=== PATIENT | male | born 1975 | race African-American/Black ===

== ENCOUNTER 2017-08-01 13:11 | Emergency (ER) | payer OTHER ==
[~2017-08-01] VITALS: Ht 167.6 cm; Wt 56.8 kg
[~2017-08-01 13:11] MED LIST: BENZ1TAB10 PO; CARB200T6 PO; DIVA250T25 PO; DSSL PO; FLUO-191 PO; FLUT16H NASAL; GLYC1TAB11 PO; LEVO25TA9 PO; LORA-703 PO; LORA10TA7 PO; METO25 PO; MONT10TA21 PO; THIO50 PO; TRAZ150 PO; ZOLP10TA7 PO
[2017-08-01 13:14] VITALS: BP 134/79
== END 2017-08-01 15:02 | disposition left against medical advice (07) ==
LOC: EMS 13:12
DX: R06.02 Shortness of breath (principal); K21.9 Gastro-esophageal reflux disease without esophagitis; J45.909 Unspecified asthma, uncomplicated; Z53.21 Procedure and treatment not carried out due to patient leaving prior to being seen by health care provider

== ENCOUNTER 2017-09-26 06:35 | Day surgery (SDC) | payer OTHER ==
[~2017-09-26] VITALS: Ht 165.1 cm; Wt 74.1 kg
[~2017-09-26 06:35] MED LIST changes: +DIPH50 PO; -DIVA250T25 PO; +DIVA500T35 PO; +DSS100 PO; -DSSL PO; -FLUO-191 PO; -FLUT16H NASAL; -LORA-703 PO; +LORA0.5T2 PO; -LORA10TA7 PO; -MONT10TA21 PO; +OLAN10TA3 PO; +RINGERS SOLUTION,LACTATED 1,000 ML IV ONE; -THIO50 PO; -TRAZ150 PO; -ZOLP10TA7 PO
[2017-09-26] MEDS ORDERED: MIDAZOLAM HCL 2 MG/2 ML VIAL IVP ONE (06:36)
[2017-09-26] MEDS ORDERED: PROPOFOL 1% 20 ML VIAL IVP ONE (06:36)
[2017-09-26] MEDS ORDERED: FentaNYL CITRATE-PF 100 MCG/2 ML VIAL IVP ONE (06:36)
[2017-09-26] MEDS ORDERED: OXYMETAZOLINE HCL 0.05% 15 ML NASAL SPRAY NASAL ONE (07:06)
[2017-09-26] MEDS ORDERED: SODIUM CHLORIDE 0.9% 100 ML ONE (07:11)
[2017-09-26] MEDS ORDERED: AMPICILLIN SODIUM 1 GM/VIAL ONE (07:11)
[2017-09-26 07:29] LABS: BASOPHILS % (AUTO) 0.3 % (0.0-2.0); EOSINOPHILS % (AUTO) 2.4 % (1.0-6.0); HEMATOCRIT 35.8 % (41-53); HEMOGLOBIN 12.2 g/dL (13.5-17.5); LYMPHOCYTES # (AUTO) 1.2 K/uL (1.0-4.8); LYMPHOCYTES % (AUTO) 15.1 % (22.0-44.0); MEAN CORPUSCULAR HEMOGLOBIN 30.9 pg (26.0-34.0); MEAN CORPUSCULAR HGB CONC 34.1 G/dL (31.0-37.0); MEAN CORPUSCULAR VOLUME 91 fL (80-100); MONOCYTES # (AUTO) 1.1 K/uL (0.1-1.0); MONOCYTES % (AUTO) 13.6 % (2.0-9.0); NEUTROPHILS # (AUTO) 5.6 K/uL (1.8-7.7); NEUTROPHILS % (AUTO) 68.6 % (40.0-70.0); PLATELET COUNT (AUTO) 227 K/uL (150-450); RED BLOOD CELL COUNT(AUTO) 3.95 MIL/uL (4.50-5.90); RED CELL DISTRIBUTION WIDTH 14.7 % (11.5-14.5)
[2017-09-26 07:37] LABS: ANION GAP 4 mmol/L (8-16); CALCIUM, TOTAL 8.7 mg/dL (8.8-10.5); CARBON DIOXIDE 29 mmol/L (22-29); CHLORIDE 100 mmol/L (98-107); CREATININE 0.69 mg/dL (0.60-1.30); GLOMERULAR FILTR. RATE CALC > 60 mL/min (>60); GLUCOSE,RANDOM 92 mg/dL (70-110); SODIUM SERUM 133 mmol/L (136-145); UREA NITROGEN, BLOOD 8 mg/dL (7-18)
[2017-09-26 07:42] LABS: ALANINE AMINOTRANSFERASE 21 U/L (12-78); ALBUMIN 3.1 g/dL (3.4-5.0); ALKALINE PHOSPHATASE 43 U/L (46-116); ASPARTATE AMINOTRANSFERASE 13 U/L (15-37); BILIRUBIN,TOTAL 0.2 mg/dL (0.1-1.0); TOTAL PROTEIN, SERUM 7.6 g/dL (6.4-8.2)
[2017-09-26] MEDS ORDERED: FentaNYL CITRATE-PF 100 MCG/2 ML VIAL IVP PRN ×2 (10:15)
[2017-09-26] MEDS ORDERED: KETOROLAC TROMETHAMINE 60 MG/2 ML VIAL IM PRN (10:15)
[2017-09-26] MEDS ORDERED: ONDANSETRON HCL 4 MG/2 ML VIAL IVP PRN (10:15)
[2017-09-26] MEDS ORDERED: FentaNYL CITRATE-PF 100 MCG/2 ML VIAL ONE ×2 (10:46→10:58)
[2017-09-26] MEDS ORDERED: MIDAZOLAM HCL 2 MG/2 ML VIAL ONE (10:46)
[2017-09-26] MEDS ORDERED: MEPERIDINE HCL/PF 25 MG/0.5 ML AMP ONE (10:59)
[2017-09-26] MEDS: FentaNYL CITRATE-PF 100 MCG/2 ML VIAL IVP PRN ×2 (11:06→11:12)
[2017-09-26] MEDS: MIDAZOLAM HCL 2 MG/2 ML VIAL IVP PRN ×2 (11:07→11:12)
== END 2017-09-26 12:00 | disposition home or self-care (01) ==
LOC: SURGERY 06:35
PROVIDERS: ATTEND Dentist General Practice
DX: K05.30 Chronic periodontitis, unspecified (principal); I10 Essential (primary) hypertension; E03.9 Hypothyroidism, unspecified; G40.909 Epilepsy, unspecified, not intractable, without status epilepticus; Z79.01 Long term (current) use of anticoagulants
CPT/HCPCS: 36415; 41899; 71045; 80053; 85025; 85610; 85730; 93005; J0290; J2250; J2704; J3010; J7050; J7120

== ENCOUNTER 2019-02-08 19:55 | Emergency (ER) | payer MEDICARE, OTHER ==
[~2019-02-08] VITALS: Ht 172.7 cm; Wt 71.9 kg
[~2019-02-08 19:55] MED LIST changes: +DIVA-78 PO; -DIVA500T35 PO; +LORA-999 PO; -LORA0.5T2 PO; -RINGERS SOLUTION,LACTATED 1,000 ML IV ONE
[2019-02-08] MEDS ORDERED: LORA0.5T83 PO (20:17)
[2019-02-08] MEDS ORDERED: ACET-2247 PO (20:17)
[2019-02-08 21:19] LABS: AMPHET/METH SCREEN,URINE NEGATIVE (NEGATIVE); BARBITURATE SCREEN, URINE NEGATIVE (NEGATIVE); BENZODIAZEPINES SCREEN,URINE NEGATIVE (NEGATIVE); CANNABINOID SCREEN,URINE NEGATIVE (NEGATIVE); COCAINE SCREEN,URINE NEGATIVE (NEGATIVE); METHADONE SCREEN, URINE NEGATIVE (NEGATIVE); OPIATE SCREEN,URINE NEGATIVE (NEGATIVE)
[2019-02-08 21:24] LABS: PHENCYCLIDINE SCREEN,URINE NEGATIVE (NEGATIVE)
[2019-02-08 21:29] LABS: BASOPHILS % (AUTO) 0.8 % (0.0-2.0); EOSINOPHILS % (AUTO) 3.1 % (1.0-6.0); HEMATOCRIT 37.7 % (41-53); HEMOGLOBIN 12.7 g/dL (13.5-17.5); LYMPHOCYTES # (AUTO) 1.5 K/uL (1.0-4.8); LYMPHOCYTES % (AUTO) 36.9 % (22.0-44.0); MEAN CORPUSCULAR HEMOGLOBIN 31.2 pg (26.0-34.0); MEAN CORPUSCULAR HGB CONC 33.6 G/dL (31.0-37.0); MEAN CORPUSCULAR VOLUME 93 fL (80-100); MONOCYTES # (AUTO) 0.8 K/uL (0.1-1.0); MONOCYTES % (AUTO) 19.9 % (2.0-9.0); NEUTROPHILS # (AUTO) 1.6 K/uL (1.8-7.7); NEUTROPHILS % (AUTO) 39.3 % (40.0-70.0); PLATELET COUNT (AUTO) 246 K/uL (150-450); RED BLOOD CELL COUNT(AUTO) 4.07 MIL/uL (4.50-5.90); RED CELL DISTRIBUTION WIDTH 15.3 % (11.5-14.5)
[2019-02-08 21:45] LABS: ANION GAP 3 mmol/L (8-16); CALCIUM, TOTAL 9.4 mg/dL (8.8-10.5); CARBON DIOXIDE 30 mmol/L (22-29); CHLORIDE 99 mmol/L (98-107); CREATININE 0.71 mg/dL (0.60-1.30); GLOMERULAR FILTR. RATE CALC > 60 mL/min (>60); GLUCOSE,RANDOM 72 mg/dL (70-110); POTASSIUM 4.2 mmol/L (3.5-5.1); SODIUM SERUM 132 mmol/L (136-145); UREA NITROGEN, BLOOD 9 mg/dL (7-18)
[2019-02-08 21:51] LABS: ALANINE AMINOTRANSFERASE 21 U/L (12-78); ALBUMIN 3.5 g/dL (3.4-5.0); ALKALINE PHOSPHATASE 40 U/L (46-116); ASPARTATE AMINOTRANSFERASE 23 U/L (15-37); BILIRUBIN,TOTAL 0.2 mg/dL (0.1-1.0); CARBAMAZEPINE (TEGRETOL) 4.5 mcg/mL (4.0-12.0); VALPROIC ACID 27 mcg/mL (50-100)
[2019-02-09 02:00] VITALS: BP 130/82
[2019-02-10] MEDS ORDERED: GLYC1TAB11 PO (11:48)
[2019-02-10] MEDS ORDERED: LEVE500T53 PO (11:48)
[2019-02-10] MEDS ORDERED: AMLO5TAB9 PO (11:48)
[2019-02-10] MEDS ORDERED: DIVA-78 PO (11:48)
[2019-02-10] MEDS ORDERED: DOCU-275 PO (13:23)
== END 2019-02-09 02:27 | disposition home or self-care (01) ==
LOC: EMS 19:56
DX: R45.1 Restlessness and agitation (principal); J45.909 Unspecified asthma, uncomplicated; K21.9 Gastro-esophageal reflux disease without esophagitis; G80.9 Cerebral palsy, unspecified; F32.9 Major depressive disorder, single episode, unspecified; Z79.899 Other long term (current) drug therapy
CPT/HCPCS: 36415; 80053; 80156; 80164; 80307; 85025; 99284; G0480

== ENCOUNTER 2019-02-10 11:07 | Inpatient (IN) | payer MEDICARE, OTHER ==
[~2019-02-10] VITALS: Ht 167.6 cm; Wt 68.6 kg
[~2019-02-10 11:07] MED LIST changes: +ACET-2247 PO; +LORA0.5T83 PO
[2019-02-10] MEDS ORDERED: LORazepam 2 MG/ML VIAL IVP ONE (11:45)
[2019-02-10] MEDS ORDERED: GLYC1TAB11 PO (11:48)
[2019-02-10] MEDS ORDERED: AMLO5TAB9 PO (11:48)
[2019-02-10] MEDS ORDERED: LEVE500T53 PO (11:48)
[2019-02-10] MEDS ORDERED: DIVA-78 PO (11:48)
[2019-02-10 12:05] LABS: BASOPHILS % (AUTO) 1.1 % (0.0-2.0); EOSINOPHILS % (AUTO) 0.4 % (1.0-6.0); HEMATOCRIT 39.4 % (41-53); HEMOGLOBIN 13.2 g/dL (13.5-17.5); LYMPHOCYTES # (AUTO) 1.2 K/uL (1.0-4.8); LYMPHOCYTES % (AUTO) 13.4 % (22.0-44.0); MEAN CORPUSCULAR HEMOGLOBIN 31.3 pg (26.0-34.0); MEAN CORPUSCULAR HGB CONC 33.6 G/dL (31.0-37.0); MEAN CORPUSCULAR VOLUME 93 fL (80-100); MONOCYTES # (AUTO) 0.9 K/uL (0.1-1.0); MONOCYTES % (AUTO) 9.5 % (2.0-9.0); NEUTROPHILS % (AUTO) 75.6 % (40.0-70.0); PLATELET COUNT (AUTO) 323 K/uL (150-450); RED BLOOD CELL COUNT(AUTO) 4.22 MIL/uL (4.50-5.90); RED CELL DISTRIBUTION WIDTH 15.4 % (11.5-14.5)
[2019-02-10 12:35] LABS: ANION GAP 15 mmol/L (8-16); CALCIUM, TOTAL 9.3 mg/dL (8.8-10.5); CARBON DIOXIDE 21 mmol/L (22-29); CHLORIDE 101 mmol/L (98-107); CREATININE 1.09 mg/dL (0.60-1.30); GLOMERULAR FILTR. RATE CALC > 60 mL/min (>60); GLUCOSE,RANDOM 92 mg/dL (70-110); POTASSIUM 4.3 mmol/L (3.5-5.1); SODIUM SERUM 137 mmol/L (136-145); UREA NITROGEN, BLOOD 9 mg/dL (7-18)
[2019-02-10 12:48] LABS: ALANINE AMINOTRANSFERASE 24 U/L (12-78); ALBUMIN 3.7 g/dL (3.4-5.0); ALKALINE PHOSPHATASE 43 U/L (46-116); ASPARTATE AMINOTRANSFERASE 19 U/L (15-37); BILIRUBIN,TOTAL 0.2 mg/dL (0.1-1.0); FREE T4 (FREE THYROXINE) 1.02 ng/dL (0.76-1.46); THYROID STIMULATING HORMONE 1.24 uIU/mL (0.36-3.74); TOTAL PROTEIN, SERUM 8.4 g/dL (6.4-8.2); VALPROIC ACID 16 mcg/mL (50-100)
[2019-02-10] MEDS ORDERED: SODIUM CHLORIDE 0.9% 2,200 ML IV ONE (13:17)
[2019-02-10] MEDS ORDERED: DOCU-275 PO (13:23)
[2019-02-10] MEDS ORDERED: 0.9% SODIUM CHLORIDE 10 ML SYRINGE IVP PRN (13:30)
[2019-02-10 13:50] LABS: PROTHROMBIN TIME 10.4 SEC (9.4-11.6)
[2019-02-10 14:20] LABS: LACTIC ACID 2.3 mmol/L (0.4-2.0)
[2019-02-10] MEDS ORDERED: VALPROATE SODIUM 1,000 MG in DEXTROSE 5%-WATER 100 ML IV ONE (14:45)
[2019-02-10] MEDS ORDERED: CefTRIAXone SODIUM 2 GM in DEXTROSE 5%-WATER 50 ML IV ONE (14:45)
[2019-02-10] MEDS ORDERED: PIPERACILLIN/TAZO 3.375 GM/D5W 50 ML IV ONE (14:45)
[2019-02-10 18:16] LABS: AMPHET/METH SCREEN,URINE NEGATIVE (NEGATIVE); BARBITURATE SCREEN, URINE NEGATIVE (NEGATIVE); BENZODIAZEPINES SCREEN,URINE NEGATIVE (NEGATIVE); CANNABINOID SCREEN,URINE NEGATIVE (NEGATIVE); COCAINE SCREEN,URINE NEGATIVE (NEGATIVE); METHADONE SCREEN, URINE NEGATIVE (NEGATIVE); OPIATE SCREEN,URINE NEGATIVE (NEGATIVE)
[2019-02-10 18:17] LABS: APPEARANCE,URINE CLEAR (CLEAR); BILIRUBIN,URINE NEGATIVE (NEGATIVE); GLUCOSE, URINE (UA) NEGATIVE (NEGATIVE); KETONES,URINE NEGATIVE (NEGATIVE); LEUKOCYTE ESTERASE ,URINE NEGATIVE (NEGATIVE); NITRATE,URINE NEGATIVE (NEGATIVE); OCCULT BLOOD,URINE NEGATIVE (NEGATIVE); PH,URINE 6.5 (5.0-8.0); PROTEIN,URINE NEGATIVE (NEGATIVE); UROBILINOGEN,URINE 0.2 mg/dL (<=1.0)
[2019-02-10 18:19] LABS: PHENCYCLIDINE SCREEN,URINE NEGATIVE (NEGATIVE)
[2019-02-10 20:43] VITALS: BP 141/89
[2019-02-10] MEDS ORDERED: DOCUSATE SODIUM 100 MG CAPSULE PO SCH (21:00)
[2019-02-10] MEDS ORDERED: ALBUTEROL SULFATE 2.5 MG/0.5 ML NEB SOLUTION NEB PRN (21:00)
[2019-02-10] MEDS ORDERED: HYDROCODONE/ACETAMINOPHEN 5-325 MG TABLET PO PRN (21:00)
[2019-02-10] MEDS ORDERED: BISACODYL 10 MG RECTAL RECTAL SUPPOSITORY PR PRN (21:00)
[2019-02-10] MEDS ORDERED: IPRATROPIUM BROMIDE 0.5 MG/2.5 ML NEB SOLUTION NEB PRN (21:00)
[2019-02-10] MEDS ORDERED: ZOLPIDEM TARTRATE 5 MG TABLET PO PRN (21:00)
[2019-02-10] MEDS ORDERED: ONDANSETRON HCL 4 MG/2 ML VIAL IVP PRN (21:00)
[2019-02-10] MEDS ORDERED: ACETAMINOPHEN 325 MG TABLET PO PRN (21:00)
[2019-02-10] MEDS ORDERED: DiphenhydrAMINE HCL 50 MG CAPSULE PO SCH (21:00)
[2019-02-10] MEDS ORDERED: MAGNESIUM HYDROXIDE SUSPENSION 30 ML UDCUP PO PRN (21:00)
[2019-02-10] MEDS ORDERED: MORPHINE SULFATE 2 MG/ML SYRINGE IVP PRN (21:00)
[2019-02-10] MEDS ORDERED: LORazepam 0.5 MG TABLET PO PRN (21:00)
[2019-02-10] MEDS: OLANZapine 10 MG TABLET PO SCH (22:08)
[2019-02-10] MEDS: BENZTROPINE MESYLATE 1 MG TABLET PO SCH (22:08)
[2019-02-10] MEDS: CarBAMazepine 200 MG TABLET PO SCH (22:08)
[2019-02-10] MEDS: GLYCOPYRROLATE 1 MG TABLET PO SCH (22:08)
[2019-02-10] MEDS: DIVALPROEX SODIUM 500 MG DR TABLET PO SCH (22:08)
[2019-02-10] MEDS: LevETIRAcetam 500 MG TABLET PO SCH (22:09)
[2019-02-10 23:54] VITALS: BP 102/54
[2019-02-11] MEDS: HEPARIN SODIUM,PORCINE 5,000 UNITS/ML VIAL SQ SCH ×3 (00:58→16:00)
[2019-02-11] MEDS ORDERED: PNEUMOCOCCAL VACCINE POLYVALENT 0.5 ML VIAL [PPSV23] IM ONE (02:15)
[2019-02-11 05:07] VITALS: BP 118/93
[2019-02-11] MEDS ORDERED: LEVOTHYROXINE SODIUM 25 MCG TABLET PO SCH (06:30)
[2019-02-11 06:59] LABS: BASOPHILS % (AUTO) 0.9 % (0.0-2.0); HEMATOCRIT 37.9 % (41-53); HEMOGLOBIN 12.8 g/dL (13.5-17.5); LYMPHOCYTES # (AUTO) 1.7 K/uL (1.0-4.8); MEAN CORPUSCULAR HEMOGLOBIN 31.4 pg (26.0-34.0); MEAN CORPUSCULAR HGB CONC 33.8 G/dL (31.0-37.0); MEAN CORPUSCULAR VOLUME 93 fL (80-100); MONOCYTES # (AUTO) 0.6 K/uL (0.1-1.0); NEUTROPHILS # (AUTO) 2.8 K/uL (1.8-7.7); NEUTROPHILS % (AUTO) 54.1 % (40.0-70.0); PLATELET COUNT (AUTO) 311 K/uL (150-450); RED BLOOD CELL COUNT(AUTO) 4.08 MIL/uL (4.50-5.90); RED CELL DISTRIBUTION WIDTH 15.4 % (11.5-14.5)
[2019-02-11 07:23] LABS: ALANINE AMINOTRANSFERASE 22 U/L (12-78); ALKALINE PHOSPHATASE 40 U/L (46-116); ANION GAP 11 mmol/L (8-16); ASPARTATE AMINOTRANSFERASE 17 U/L (15-37); BILIRUBIN,TOTAL 0.2 mg/dL (0.1-1.0); CALCIUM, TOTAL 8.8 mg/dL (8.8-10.5); CARBON DIOXIDE 26 mmol/L (22-29); CHLORIDE 106 mmol/L (98-107); CREATININE 0.71 mg/dL (0.60-1.30); GLOMERULAR FILTR. RATE CALC > 60 mL/min (>60); GLUCOSE,RANDOM 75 mg/dL (70-110); POTASSIUM 3.5 mmol/L (3.5-5.1); SODIUM SERUM 143 mmol/L (136-145); TOTAL PROTEIN, SERUM 7.7 g/dL (6.4-8.2); UREA NITROGEN, BLOOD 4 mg/dL (7-18)
[2019-02-11 08:29] VITALS: BP 140/81
[2019-02-11] MEDS: CarBAMazepine 200 MG TABLET PO SCH (08:33)
[2019-02-11] MEDS: OLANZapine 10 MG TABLET PO SCH (08:33)
[2019-02-11] MEDS: BENZTROPINE MESYLATE 1 MG TABLET PO SCH (08:33)
[2019-02-11] MEDS: LevETIRAcetam 500 MG TABLET PO SCH ×2 (08:33→17:17)
[2019-02-11] MEDS: GLYCOPYRROLATE 1 MG TABLET PO SCH ×2 (08:33→17:16)
[2019-02-11] MEDS: DIVALPROEX SODIUM 500 MG DR TABLET PO SCH (08:34)
[2019-02-11] MEDS ORDERED: METOPROLOL TARTRATE 25 MG TABLET PO SCH (09:00)
[2019-02-11] MEDS ORDERED: AmLODIPine BESYLATE 5 MG TABLET PO SCH (09:00)
[2019-02-11] MEDS ORDERED: DOCUSATE SODIUM 100 MG CAPSULE PO SCH (09:00)
[2019-02-11 12:34] VITALS: BP 134/76
[2019-02-11] MEDS ORDERED: LORazepam 2 MG/ML VIAL IVP PRN (14:00)
[2019-02-11 16:16] VITALS: BP 144/90
[2019-02-11 20:00] VITALS: BP 113/81
== END 2019-02-11 20:15 | DRG 101 ==
LOC: EMS 11:08 → 5S 18:31
PROVIDERS: ADMIT Hospitalist; ATTEND Hospitalist
DX: G40.909 Epilepsy, unspecified, not intractable, without status epilepticus (principal); I10 Essential (primary) hypertension; E03.9 Hypothyroidism, unspecified; F32.9 Major depressive disorder, single episode, unspecified; J45.909 Unspecified asthma, uncomplicated; Z87.01 Personal history of pneumonia (recurrent); F79 Unspecified intellectual disabilities; K21.9 Gastro-esophageal reflux disease without esophagitis
CPT/HCPCS: 70450; 83605; 84145; 84439; 84443; 87040; 87081; 87205; 93005; 97165; G0480; J0696; J1644; J2060; J2543; J3490; J7030; J7060

== ENCOUNTER 2022-06-14 11:21 | Inpatient (IN) | payer MEDICARE, OTHER ==
[~2022-06-14] VITALS: Ht 165.1 cm; Wt 65.5 kg
[~2022-06-14 11:21] MED LIST changes: +AMLO-257 PO; -BENZ1TAB10 PO; +BENZ1TAB96 PO; +DIVA-112 PO; -DIVA-78 PO; +DOCU-385 PO; -DSS100 PO; -GLYC1TAB11 PO; +GLYC1TAB27 PO; +LEVE500T20 PO; -OLAN10TA3 PO; +OLAN10TA74 PO
[2022-06-14] MEDS ORDERED: DOCU-350 PO (11:46)
[2022-06-14] MEDS ORDERED: CHOL25TA4 PO (11:46)
[2022-06-14] MEDS ORDERED: CARB100T53 PO (11:46)
[2022-06-14] MEDS ORDERED: DIVA-112 PO ×2 (11:46)
[2022-06-14] MEDS ORDERED: POLY17PO47 PO (11:46)
[2022-06-14] MEDS ORDERED: SIMV-260 PO (11:46)
[2022-06-14] MEDS ORDERED: CARB-60 PO (11:58)
[2022-06-14] MEDS ORDERED: METO-408 PO (11:58)
[2022-06-14] MEDS ORDERED: CARBXR100 PO (11:59)
[2022-06-14 13:26] LABS: COVID AG,FIA SOURCE NASAL SWAB
[2022-06-14 13:29] LABS: BASOPHILS % (AUTO) 0.7 % (0.0-2.0); HEMATOCRIT 39.5 % (41-53); HEMOGLOBIN 13.2 g/dL (13.5-17.5); LYMPHOCYTES # (AUTO) 0.3 K/uL (1.0-4.8); LYMPHOCYTES % (AUTO) 7.1 % (22.0-44.0); MEAN CORPUSCULAR HEMOGLOBIN 30.3 pg (26.0-34.0); MEAN CORPUSCULAR HGB CONC 33.5 G/dL (31.0-37.0); MEAN CORPUSCULAR VOLUME 90 fL (80-100); MONOCYTES # (AUTO) 0.8 K/uL (0.1-1.0); MONOCYTES % (AUTO) 17.5 % (2.0-9.0); NEUTROPHILS # (AUTO) 3.3 K/uL (1.8-7.7); NEUTROPHILS % (AUTO) 72.7 % (40.0-70.0); PLATELET COUNT (AUTO) 159 K/uL (150-450); RED BLOOD CELL COUNT(AUTO) 4.38 MIL/uL (4.50-5.90); RED CELL DISTRIBUTION WIDTH 14.7 % (11.5-14.5)
[2022-06-14 13:46] LABS: ALANINE AMINOTRANSFERASE 24 U/L (12-78); ALBUMIN 3.8 g/dL (3.4-5.0); ALKALINE PHOSPHATASE 45 U/L (46-116); ANION GAP 6 mmol/L (8-16); ASPARTATE AMINOTRANSFERASE 20 U/L (15-37); BILIRUBIN,TOTAL 0.1 mg/dL (0.1-1.0); CALCIUM, TOTAL 9.1 mg/dL (8.8-10.5); CARBON DIOXIDE 29 mmol/L (22-29); CHLORIDE 94 mmol/L (98-107); CREATININE 0.91 mg/dL (0.60-1.30); GLOMERULAR FILTR. RATE CALC > 60 mL/min (>60); GLUCOSE,RANDOM 84 mg/dL (70-110); POTASSIUM 4.3 mmol/L (3.5-5.1); SODIUM SERUM 129 mmol/L (136-145); UREA NITROGEN, BLOOD 10 mg/dL (7-18); VALPROIC ACID 67 mcg/mL (50-100)
[2022-06-14] MEDS ORDERED: MORPHINE SULFATE 2 MG/ML SYRINGE IVP PRN (14:30)
[2022-06-14] MEDS ORDERED: LORazepam 2 MG/ML VIAL IVP PRN (14:30)
[2022-06-14] MEDS ORDERED: ONDANSETRON HCL 4 MG/2 ML VIAL IVP PRN (14:30)
[2022-06-14] MEDS ORDERED: MAGNESIUM HYDROXIDE SUSPENSION 30 ML UDCUP PO PRN (14:30)
[2022-06-14] MEDS ORDERED: HYDROCODONE/ACETAMINOPHEN 5-325 MG TABLET PO PRN (14:30)
[2022-06-14] MEDS ORDERED: VALPROATE SODIUM 1,000 MG in DEXTROSE 5%-WATER 100 ML IV ONE (14:30)
[2022-06-14] MEDS ORDERED: ACETAMINOPHEN 325 MG TABLET PO PRN (14:30)
[2022-06-14] MEDS ORDERED: BISACODYL 10 MG RECTAL RECTAL SUPPOSITORY PR PRN (14:30)
[2022-06-14 14:40] LABS: CARBAMAZEPINE (TEGRETOL) 4.6 mcg/mL (4.0-12.0)
[2022-06-14 15:49] VITALS: BP 142/82
[2022-06-14 15:52] LABS: AMPHET/METH SCREEN,URINE NEGATIVE (NEGATIVE); BARBITURATE SCREEN, URINE NEGATIVE (NEGATIVE); BENZODIAZEPINES SCREEN,URINE NEGATIVE (NEGATIVE); CANNABINOID SCREEN,URINE NEGATIVE (NEGATIVE); COCAINE SCREEN,URINE NEGATIVE (NEGATIVE); METHADONE SCREEN, URINE NEGATIVE (NEGATIVE); OPIATE SCREEN,URINE NEGATIVE (NEGATIVE); PHENCYCLIDINE SCREEN,URINE NEGATIVE (NEGATIVE)
[2022-06-14] MEDS: HEPARIN SODIUM,PORCINE 5,000 UNITS/ML VIAL SQ SCH (18:08)
[2022-06-14 20:20] VITALS: BP 123/70
[2022-06-14] MEDS: BENZTROPINE MESYLATE 1 MG TABLET PO SCH (20:39)
[2022-06-14] MEDS: DIVALPROEX SODIUM 500 MG DR TABLET PO SCH (20:39)
[2022-06-14] MEDS: DOCUSATE SODIUM 100 MG CAPSULE PO SCH (20:39)
[2022-06-14] MEDS: CarBAMazepine 100 MG ER TABLET PO SCH (20:39)
[2022-06-14] MEDS: ZOLPIDEM TARTRATE 5 MG TABLET PO PRN (20:40)
[2022-06-15] MEDS: HEPARIN SODIUM,PORCINE 5,000 UNITS/ML VIAL SQ SCH ×4 (00:01→23:04)
[2022-06-15 00:53] VITALS: BP_SYST 106; BP_SYST 108; BP_DIAS 56; BP_DIAS 71
[2022-06-15 05:47] VITALS: BP 111/74
[2022-06-15] MEDS: LEVOTHYROXINE SODIUM 25 MCG TABLET PO SCH (05:49)
[2022-06-15 08:38] VITALS: BP 127/86
[2022-06-15] MEDS: SIMVASTATIN 20 MG TABLET PO SCH (09:00)
[2022-06-15] MEDS: BENZTROPINE MESYLATE 1 MG TABLET PO SCH ×2 (09:01→21:33)
[2022-06-15] MEDS: DOCUSATE SODIUM 100 MG CAPSULE PO SCH ×2 (09:01→21:33)
[2022-06-15] MEDS: METOPROLOL SUCCINATE 25 MG ER TABLET PO SCH (09:01)
[2022-06-15] MEDS: AmLODIPine BESYLATE 5 MG TABLET PO SCH (09:01)
[2022-06-15] MEDS: PANTOPRAZOLE SODIUM 40 MG DR TABLET PO SCH (09:01)
[2022-06-15] MEDS: DEXAMETHASONE 4 MG TABLET PO SCH (09:01)
[2022-06-15] MEDS: CarBAMazepine 200 MG ER TABLET PO SCH (09:02)
[2022-06-15] MEDS: DIVALPROEX SODIUM 500 MG DR TABLET PO SCH ×2 (09:03→21:30)
[2022-06-15 10:00] VITALS: BP 136/81
[2022-06-15 11:20] LABS: HEMOGLOBIN 13.2 g/dL (13.5-17.5); MEAN CORPUSCULAR HGB CONC 33.1 G/dL (31.0-37.0); MEAN CORPUSCULAR VOLUME 91 fL (80-100); PLATELET COUNT (AUTO) 139 K/uL (150-450); RED BLOOD CELL COUNT(AUTO) 4.41 MIL/uL (4.50-5.90); RED CELL DISTRIBUTION WIDTH 14.6 % (11.5-14.5)
[2022-06-15 11:43] LABS: ANION GAP 6 mmol/L (8-16); CALCIUM, TOTAL 9.3 mg/dL (8.8-10.5); CARBON DIOXIDE 29 mmol/L (22-29); CHLORIDE 96 mmol/L (98-107); CREATININE 0.89 mg/dL (0.60-1.30); GLOMERULAR FILTR. RATE CALC > 60 mL/min (>60); GLUCOSE,RANDOM 119 mg/dL (70-110); POTASSIUM 3.6 mmol/L (3.5-5.1); SODIUM SERUM 131 mmol/L (136-145); UREA NITROGEN, BLOOD 11 mg/dL (7-18)
[2022-06-15 11:52] LABS: BAND NEUTROPHILS % (MANUAL) 14 % (0-5); LYMPHOCYTES % (MANUAL) 21 % (22-44); MONOCYTES % (MANUAL) 7 % (2-9); SEGMENTED NEUTROPHILS % 58 % (40-70)
[2022-06-15 15:36] VITALS: BP 113/67
[2022-06-15 19:48] VITALS: BP 115/74
[2022-06-15] MEDS: CarBAMazepine 100 MG ER TABLET PO SCH (21:29)
[2022-06-15] MEDS: ZOLPIDEM TARTRATE 5 MG TABLET PO PRN (21:33)
[2022-06-16] MEDS ORDERED: HALOPERIDOL LACTATE 5 MG/ML VIAL IM PRN (00:15)
[2022-06-16] MEDS: LORazepam 2 MG/ML VIAL IVP PRN ×3 (00:54→20:23)
[2022-06-16 04:51] VITALS: BP 118/53
[2022-06-16] MEDS: LEVOTHYROXINE SODIUM 25 MCG TABLET PO SCH (06:00)
[2022-06-16 07:42] VITALS: BP 118/78
[2022-06-16 07:50] LABS: BASOPHILS % (AUTO) 0.7 % (0.0-2.0); EOSINOPHILS % (AUTO) 0 % (1.0-6.0); HEMATOCRIT 40.8 % (41-53); LYMPHOCYTES # (AUTO) 1.8 K/uL (1.0-4.8); LYMPHOCYTES % (AUTO) 24.1 % (22.0-44.0); MEAN CORPUSCULAR HEMOGLOBIN 30.9 pg (26.0-34.0); MEAN CORPUSCULAR HGB CONC 34.2 G/dL (31.0-37.0); MEAN CORPUSCULAR VOLUME 90 fL (80-100); MONOCYTES # (AUTO) 1.1 K/uL (0.1-1.0); MONOCYTES % (AUTO) 15.2 % (2.0-9.0); NEUTROPHILS # (AUTO) 4.5 K/uL (1.8-7.7); PLATELET COUNT (AUTO) 160 K/uL (150-450); RED BLOOD CELL COUNT(AUTO) 4.52 MIL/uL (4.50-5.90); RED CELL DISTRIBUTION WIDTH 14.7 % (11.5-14.5)
[2022-06-16 08:05] LABS: ANION GAP 9 mmol/L (8-16); CALCIUM, TOTAL 10.1 mg/dL (8.8-10.5); CARBON DIOXIDE 27 mmol/L (22-29); CHLORIDE 97 mmol/L (98-107); CREATININE 1.44 mg/dL (0.60-1.30); GLOMERULAR FILTR. RATE CALC > 60 mL/min (>60); GLUCOSE,RANDOM 110 mg/dL (70-110); POTASSIUM 3.8 mmol/L (3.5-5.1); SODIUM SERUM 133 mmol/L (136-145); UREA NITROGEN, BLOOD 16 mg/dL (7-18)
[2022-06-16] MEDS: METOPROLOL SUCCINATE 25 MG ER TABLET PO SCH (08:11)
[2022-06-16] MEDS: AmLODIPine BESYLATE 5 MG TABLET PO SCH (08:11)
[2022-06-16] MEDS: PANTOPRAZOLE SODIUM 40 MG DR TABLET PO SCH (08:11)
[2022-06-16] MEDS: BENZTROPINE MESYLATE 1 MG TABLET PO SCH ×2 (08:11→20:24)
[2022-06-16] MEDS: CarBAMazepine 200 MG ER TABLET PO SCH (08:11)
[2022-06-16] MEDS: DOCUSATE SODIUM 100 MG CAPSULE PO SCH ×2 (08:11→20:31)
[2022-06-16] MEDS: SIMVASTATIN 20 MG TABLET PO SCH (08:11)
[2022-06-16] MEDS: DIVALPROEX SODIUM 500 MG DR TABLET PO SCH ×2 (08:12→20:24)
[2022-06-16] MEDS: DEXAMETHASONE 4 MG TABLET PO SCH (08:13)
[2022-06-16] MEDS: HEPARIN SODIUM,PORCINE 5,000 UNITS/ML VIAL SQ SCH ×2 (08:13→16:34)
[2022-06-16 15:21] VITALS: BP 118/58
[2022-06-16 20:18] VITALS: BP 110/69
[2022-06-16] MEDS: CarBAMazepine 100 MG ER TABLET PO SCH (20:23)
[2022-06-16] MEDS: ZOLPIDEM TARTRATE 5 MG TABLET PO PRN (20:24)
[2022-06-16] MEDS ORDERED: LORazepam 2 MG/ML VIAL IVP ONE (22:45)
[2022-06-17 04:00] VITALS: BP 116/78
[2022-06-17] MEDS: LEVOTHYROXINE SODIUM 25 MCG TABLET PO SCH (06:30)
[2022-06-17] MEDS: DIVALPROEX SODIUM 500 MG DR TABLET PO SCH ×2 (09:00→09:37)
[2022-06-17] MEDS: CarBAMazepine 200 MG ER TABLET PO SCH (09:35)
[2022-06-17] MEDS: SIMVASTATIN 20 MG TABLET PO SCH (09:37)
[2022-06-17] MEDS: PANTOPRAZOLE SODIUM 40 MG DR TABLET PO SCH (09:37)
[2022-06-17] MEDS: DEXAMETHASONE 4 MG TABLET PO SCH (09:37)
[2022-06-17] MEDS: AmLODIPine BESYLATE 5 MG TABLET PO SCH (09:37)
[2022-06-17] MEDS: METOPROLOL SUCCINATE 25 MG ER TABLET PO SCH (09:37)
[2022-06-17] MEDS: BENZTROPINE MESYLATE 1 MG TABLET PO SCH ×2 (09:37→23:13)
[2022-06-17] MEDS: DOCUSATE SODIUM 100 MG CAPSULE PO SCH ×2 (09:38→23:14)
[2022-06-17] MEDS: HEPARIN SODIUM,PORCINE 5,000 UNITS/ML VIAL SQ SCH ×4 (09:38→23:24)
[2022-06-17] MEDS: DIVALPROEX SODIUM 125 MG DR CAPSULE PO SCH ×2 (10:28→23:18)
[2022-06-17] MEDS: LORazepam 2 MG/ML VIAL IVP PRN ×2 (10:31→18:20)
[2022-06-17 10:39] VITALS: BP 120/78
[2022-06-17 11:31] LABS: BASOPHILS % (AUTO) 0.6 % (0.0-2.0); EOSINOPHILS % (AUTO) 0.6 % (1.0-6.0); HEMATOCRIT 39.4 % (41-53); HEMOGLOBIN 13.1 g/dL (13.5-17.5); LYMPHOCYTES # (AUTO) 1.3 K/uL (1.0-4.8); MEAN CORPUSCULAR HEMOGLOBIN 30.5 pg (26.0-34.0); MEAN CORPUSCULAR HGB CONC 33.2 G/dL (31.0-37.0); MEAN CORPUSCULAR VOLUME 92 fL (80-100); MONOCYTES # (AUTO) 0.9 K/uL (0.1-1.0); MONOCYTES % (AUTO) 18.5 % (2.0-9.0); NEUTROPHILS # (AUTO) 2.6 K/uL (1.8-7.7); NEUTROPHILS % (AUTO) 53.3 % (40.0-70.0); PLATELET COUNT (AUTO) 161 K/uL (150-450); RED BLOOD CELL COUNT(AUTO) 4.29 MIL/uL (4.50-5.90); RED CELL DISTRIBUTION WIDTH 14.7 % (11.5-14.5)
[2022-06-17 12:06] LABS: ANION GAP 11 mmol/L (8-16); CALCIUM, TOTAL 9.7 mg/dL (8.8-10.5); CARBON DIOXIDE 28 mmol/L (22-29); CHLORIDE 105 mmol/L (98-107); GLOMERULAR FILTR. RATE CALC > 60 mL/min (>60); GLUCOSE,RANDOM 116 mg/dL (70-110); POTASSIUM 3.6 mmol/L (3.5-5.1); SODIUM SERUM 144 mmol/L (136-145); UREA NITROGEN, BLOOD 21 mg/dL (7-18)
[2022-06-17 13:48] LABS: COVID AG,FIA SOURCE NASAL SWAB
[2022-06-17 16:02] VITALS: BP 124/81
[2022-06-17 21:47] VITALS: BP 146/85
[2022-06-17] MEDS: CarBAMazepine 100 MG ER TABLET PO SCH (23:15)
[2022-06-17] MEDS: ZOLPIDEM TARTRATE 5 MG TABLET PO PRN (23:20)
[2022-06-18 04:00] VITALS: BP 128/76
[2022-06-18] MEDS: LEVOTHYROXINE SODIUM 25 MCG TABLET PO SCH (06:30)
[2022-06-18 07:30] VITALS: BP 122/78
[2022-06-18] MEDS: HEPARIN SODIUM,PORCINE 5,000 UNITS/ML VIAL SQ SCH ×3 (08:55→23:19)
[2022-06-18] MEDS: AmLODIPine BESYLATE 5 MG TABLET PO SCH (08:55)
[2022-06-18] MEDS: DEXAMETHASONE 4 MG TABLET PO SCH (08:56)
[2022-06-18] MEDS: BENZTROPINE MESYLATE 1 MG TABLET PO SCH ×2 (08:56→21:39)
[2022-06-18] MEDS: DOCUSATE SODIUM 100 MG CAPSULE PO SCH ×2 (08:56→21:39)
[2022-06-18] MEDS: SIMVASTATIN 20 MG TABLET PO SCH (10:26)
[2022-06-18] MEDS: PANTOPRAZOLE SODIUM 40 MG DR TABLET PO SCH (10:26)
[2022-06-18] MEDS: DIVALPROEX SODIUM 125 MG DR CAPSULE PO SCH ×2 (10:27→21:43)
[2022-06-18] MEDS: CarBAMazepine 200 MG ER TABLET PO SCH (10:28)
[2022-06-18] MEDS: METOPROLOL SUCCINATE 25 MG ER TABLET PO SCH (10:29)
[2022-06-18 15:22] VITALS: BP 114/76
[2022-06-18] MEDS: CarBAMazepine 100 MG ER TABLET PO SCH (21:43)
[2022-06-18 22:03] VITALS: BP 124/86
[2022-06-18] MEDS: ZOLPIDEM TARTRATE 5 MG TABLET PO PRN (23:20)
[2022-06-19] MEDS: LEVOTHYROXINE SODIUM 25 MCG TABLET PO SCH (05:54)
[2022-06-19 05:58] VITALS: BP 121/80
[2022-06-19 07:22] VITALS: BP 126/82
[2022-06-19] MEDS: HEPARIN SODIUM,PORCINE 5,000 UNITS/ML VIAL SQ SCH ×2 (08:00→16:00)
[2022-06-19] MEDS: DOCUSATE SODIUM 100 MG CAPSULE PO SCH (08:37)
[2022-06-19] MEDS: BENZTROPINE MESYLATE 1 MG TABLET PO SCH (08:37)
[2022-06-19] MEDS: PANTOPRAZOLE SODIUM 40 MG DR TABLET PO SCH (08:37)
[2022-06-19] MEDS: DEXAMETHASONE 4 MG TABLET PO SCH (08:38)
[2022-06-19] MEDS: DIVALPROEX SODIUM 125 MG DR CAPSULE PO SCH (08:38)
[2022-06-19] MEDS: SIMVASTATIN 20 MG TABLET PO SCH (08:38)
[2022-06-19] MEDS: CarBAMazepine 200 MG ER TABLET PO SCH (08:38)
[2022-06-19] MEDS: AmLODIPine BESYLATE 5 MG TABLET PO SCH (08:39)
[2022-06-19] MEDS: METOPROLOL SUCCINATE 25 MG ER TABLET PO SCH (08:39)
== END 2022-06-19 17:55 | disposition home or self-care (01) | DRG 100 ==
LOC: EMS 11:22 → 5N 14:32 → 6N 06-15 09:20
PROVIDERS: ADMIT Internal Medicine; ATTEND Internal Medicine
DX: G40.901 Epilepsy, unspecified, not intractable, with status epilepticus (principal); U07.1 COVID-19; E87.1 Hypo-osmolality and hyponatremia; E03.9 Hypothyroidism, unspecified; E11.9 Type 2 diabetes mellitus without complications; I10 Essential (primary) hypertension; J45.909 Unspecified asthma, uncomplicated; E78.00 Pure hypercholesterolemia, unspecified; F32.A Depression, unspecified; K21.9 Gastro-esophageal reflux disease without esophagitis; E78.5 Hyperlipidemia, unspecified; Z78.9 Other specified health status; Z79.899 Other long term (current) drug therapy; G80.9 Cerebral palsy, unspecified; R62.50 Unspecified lack of expected normal physiological development in childhood
CPT/HCPCS: 80048; 80053; 80156; 80164; 80307; 85025; 92526; 92610; 99291; G0480; J1630; J1644; J2060; J3490; J7060; J8540

== ENCOUNTER 2022-06-20 09:49 | Emergency (ER) | payer MEDICARE, OTHER ==
[~2022-06-20] VITALS: Ht 177.8 cm; Wt 75.0 kg
[~2022-06-20 09:49] MED LIST changes: -ACET-2247 PO; +CARB-60 PO; -CARB200T6 PO; +CARBXR100 PO; -DIPH50 PO; -DOCU-385 PO; -GLYC1TAB27 PO; -LEVE500T20 PO; -LORA-999 PO; -LORA0.5T83 PO; +METO-408 PO; -METO25 PO; -OLAN10TA74 PO; +SIMV-260 PO
[2022-06-20 11:10] LABS: ANION GAP 8 mmol/L (8-16); CALCIUM, TOTAL 9.7 mg/dL (8.8-10.5); CARBON DIOXIDE 28 mmol/L (22-29); CHLORIDE 104 mmol/L (98-107); CREATININE 0.89 mg/dL (0.60-1.30); GLOMERULAR FILTR. RATE CALC > 60 mL/min (>60); GLUCOSE,RANDOM 70 mg/dL (70-110); POTASSIUM 4.1 mmol/L (3.5-5.1); SODIUM SERUM 140 mmol/L (136-145); UREA NITROGEN, BLOOD 20 mg/dL (7-18)
[2022-06-20 11:16] LABS: ALANINE AMINOTRANSFERASE 43 U/L (12-78); ALBUMIN 3.3 g/dL (3.4-5.0); ALKALINE PHOSPHATASE 44 U/L (46-116); ASPARTATE AMINOTRANSFERASE 40 U/L (15-37); BILIRUBIN,TOTAL 0.2 mg/dL (0.1-1.0); TOTAL PROTEIN, SERUM 7.5 g/dL (6.4-8.2)
[2022-06-20 12:05] LABS: BASOPHILS % (AUTO) 0.4 % (0.0-2.0); HEMATOCRIT 38.4 % (41-53); HEMOGLOBIN 12.8 g/dL (13.5-17.5); LYMPHOCYTES # (AUTO) 1.4 K/uL (1.0-4.8); LYMPHOCYTES % (AUTO) 31.8 % (22.0-44.0); MEAN CORPUSCULAR HEMOGLOBIN 30.7 pg (26.0-34.0); MEAN CORPUSCULAR HGB CONC 33.3 G/dL (31.0-37.0); MEAN CORPUSCULAR VOLUME 92 fL (80-100); MONOCYTES # (AUTO) 0.6 K/uL (0.1-1.0); MONOCYTES % (AUTO) 13.8 % (2.0-9.0); NEUTROPHILS # (AUTO) 2.2 K/uL (1.8-7.7); PLATELET COUNT (AUTO) 187 K/uL (150-450); RED BLOOD CELL COUNT(AUTO) 4.17 MIL/uL (4.50-5.90); RED CELL DISTRIBUTION WIDTH 14.2 % (11.5-14.5)
[2022-06-20 13:00] VITALS: BP 130/78
== END 2022-06-20 15:59 | disposition home or self-care (01) ==
LOC: EMS 09:51
DX: T17.590A Other foreign object in bronchus causing asphyxiation, initial encounter (principal); U07.1 COVID-19; G80.9 Cerebral palsy, unspecified; J45.909 Unspecified asthma, uncomplicated; F32.A Depression, unspecified; E78.00 Pure hypercholesterolemia, unspecified; I10 Essential (primary) hypertension; E03.9 Hypothyroidism, unspecified; X58.XXXA Exposure to other specified factors, initial encounter; Y93.89 Activity, other specified; Y92.89 Other specified places as the place of occurrence of the external cause; Y99.8 Other external cause status
CPT/HCPCS: 71045; 80053; 85025; 93005; 99285; 36415-L1; 36415-TC

== ENCOUNTER 2023-06-18 01:59 | Emergency (ER) | payer MEDICARE, OTHER ==
[~2023-06-18] VITALS: Ht 167.6 cm; Wt 59.1 kg
[~2023-06-18 01:59] MED LIST changes: +BENZ1TAB84 PO; -BENZ1TAB96 PO; +CARB100T52 PO; -CARBXR100 PO
[2023-06-18 02:13] VITALS: TEMP 97.6
[2023-06-18] MEDS: LevETIRAcetam 1,000 MG in DEXTROSE 5%-WATER 100 ML IV ONE (02:49)
[2023-06-18] MEDS: LORazepam 2 MG/ML VIAL IVP ONE (02:49)
[2023-06-18 02:55] LABS: BASOPHILS % (AUTO) 0.9 % (0.0-2.0); EOSINOPHILS % (AUTO) 4.8 % (1.0-6.0); HEMOGLOBIN 13.7 g/dL (13.5-17.5); LYMPHOCYTES # (AUTO) 1.4 K/uL (1.0-4.8); LYMPHOCYTES % (AUTO) 28.9 % (22.0-44.0); MEAN CORPUSCULAR HEMOGLOBIN 31.1 pg (26.0-34.0); MEAN CORPUSCULAR HGB CONC 34.2 G/dL (31.0-37.0); MEAN CORPUSCULAR VOLUME 91 fL (80-100); MONOCYTES # (AUTO) 0.5 K/uL (0.1-1.0); MONOCYTES % (AUTO) 10.5 % (2.0-9.0); NEUTROPHILS # (AUTO) 2.6 K/uL (1.8-7.7); NEUTROPHILS % (AUTO) 54.9 % (40.0-70.0); PLATELET COUNT (AUTO) 168 K/uL (150-450); RED BLOOD CELL COUNT(AUTO) 4.39 MIL/uL (4.50-5.90); RED CELL DISTRIBUTION WIDTH 14.8 % (11.5-14.5); WHITE BLOOD COUNT (AUTO) 4.7 K/uL (4.5-11.0)
[2023-06-18 02:56] VITALS: BP 133/81; PULSE 76; RESP 16
[2023-06-18 03:16] LABS: ANION GAP 4 mmol/L (8-16); CALCIUM, TOTAL 9.9 mg/dL (8.8-10.5); CARBON DIOXIDE 30 mmol/L (22-29); CHLORIDE 94 mmol/L (98-107); CREATININE 0.79 mg/dL (0.60-1.30); GLOMERULAR FILTR. RATE CALC > 60 mL/min (>60); GLUCOSE,RANDOM 94 mg/dL (70-110); POTASSIUM 4.3 mmol/L (3.5-5.1); SODIUM SERUM 128 mmol/L (136-145); UREA NITROGEN, BLOOD 15 mg/dL (7-18)
[2023-06-18 03:22] LABS: ALANINE AMINOTRANSFERASE 22 U/L (12-78); ALBUMIN 3.8 g/dL (3.4-5.0); ALKALINE PHOSPHATASE 42 U/L (46-116); ASPARTATE AMINOTRANSFERASE 17 U/L (15-37); BILIRUBIN,TOTAL 0.2 mg/dL (0.1-1.0); TOTAL PROTEIN, SERUM 7.9 g/dL (6.4-8.2)
[2023-06-18 03:35] LABS: CARBAMAZEPINE (TEGRETOL) 5.6 mcg/mL (4.0-12.0); VALPROIC ACID 85 mcg/mL (50-100)
[2023-06-18] MEDS: DIVALPROEX SODIUM 500 MG ER TABLET PO ONE (04:45)
== END 2023-06-18 07:37 | disposition home or self-care (01) ==
LOC: EMS 02:00
DX: S01.512A Laceration without foreign body of oral cavity, initial encounter (principal); G40.909 Epilepsy, unspecified, not intractable, without status epilepticus; R62.50 Unspecified lack of expected normal physiological development in childhood; J45.909 Unspecified asthma, uncomplicated; K59.00 Constipation, unspecified; E78.00 Pure hypercholesterolemia, unspecified; I10 Essential (primary) hypertension; F32.A Depression, unspecified; K21.9 Gastro-esophageal reflux disease without esophagitis; X58.XXXA Exposure to other specified factors, initial encounter; Y93.89 Activity, other specified; Y92.89 Other specified places as the place of occurrence of the external cause; Y99.8 Other external cause status
CPT/HCPCS: 99284; 96374; 96375; 80053; 80156; 80164; 85025; 36415; J0712; J2060; J7060

== ENCOUNTER 2023-11-04 03:42 | Emergency (ER) | payer MEDICARE, OTHER ==
[~2023-11-04] VITALS: Ht 165.1 cm; Wt 72.0 kg
[~2023-11-04 03:42] MED LIST changes: +BENZ-247 PO; -BENZ1TAB84 PO; -CARB100T52 PO; +CARB100T60 PO
[2023-11-04] MEDS: LIDOCAINE 1% 10 ML VIAL SQ ONE (05:59)
[2023-11-04] MEDS: BACITRACIN 0.9 GM PACKET OINTMENT TP ONE (06:15)
[2023-11-04 06:37] VITALS: BP 129/72; PULSE 72; RESP 16; TEMP 97.3
== END 2023-11-04 07:53 | disposition home or self-care (01) ==
LOC: EMS 03:43
DX: S01.81XA Laceration without foreign body of other part of head, initial encounter (principal); J45.909 Unspecified asthma, uncomplicated; F32.A Depression, unspecified; E78.00 Pure hypercholesterolemia, unspecified; I10 Essential (primary) hypertension; E03.9 Hypothyroidism, unspecified; W19.XXXA Unspecified fall, initial encounter; Y93.89 Activity, other specified; Y92.89 Other specified places as the place of occurrence of the external cause; Y99.8 Other external cause status
CPT/HCPCS: 99284; 70450; 12013; J3490

== ENCOUNTER 2023-11-21 16:24 | Emergency (ER) | payer MEDICARE, OTHER ==
[~2023-11-21] VITALS: Ht 167.6 cm; Wt 65.9 kg
[2023-11-21 16:29] VITALS: BP 133/78; PULSE 77; RESP 17; TEMP 98
== END 2023-11-21 17:31 | disposition home or self-care (01) ==
LOC: EMS 16:24
DX: S01.81XD Laceration without foreign body of other part of head, subsequent encounter (principal); J45.909 Unspecified asthma, uncomplicated; F32.A Depression, unspecified; E78.00 Pure hypercholesterolemia, unspecified; I10 Essential (primary) hypertension; E03.9 Hypothyroidism, unspecified; Z48.02 Encounter for removal of sutures; X58.XXXD Exposure to other specified factors, subsequent encounter
CPT/HCPCS: 99281; Z7502